=== PATIENT | female | born 1935 | race Caucasian/White ===

== ENCOUNTER 2019-11-17 08:49 | Emergency (ER) | payer MEDICARE, OTHER, SELFPAY ==
--- NOTE | 2019-11-17 08:47 | ED_ITS ---
I attest that this documentation has been prepared under the direction and in the presence of Deloris Montemayor MD. Justen Chowdhury, Scribe 11/17/19;08:48 HPI - CPR General Chief Complaint: Cardiac Arrest/CPR Stated Complaint: Cardiac arrest Time Seen by Provider: 11/17/19 08:47 Source: EMS and RN notes reviewed Mode of arrival: EMS Limitations: clinical condition History of Present Illness HPI narrative: Pt is a 84 y/o female who presents to the ED via EMS with c/o unresponsiveness. According to EMS, restaurant staff at a local diner heard a collapse around 8:10 AM this morning. They note that restaurant staff hadn't witnessed the collapse, but soon found the pt unresponsive in her lau. They eventually called EMS around 8:12 AM. EMS states that the pt hadPEA and no pulse upon their arrival. Pt's BS was 93. They note that they administered a total of 6 rounds of epinephrine while in route, and state that they have performed roughly 30 minutes of CPR prior to their arrival to the ED. No family was present when the patient collapsed. Patient was alone. No no medical history. No prior visits to this facility. HPI limited due to the pt's clinical condition. complaint: collapsed during rest Onset (ago): minute(s) (35) Time: 08:12 Timing confirmed by: other (EMS) Place: other (restaurant) Initial findings in the field: no pulse and PEA Associated symptoms: other (unobtainable) Treatments prior to arrival: chest compressions and epinephrine mgs # (5) Review of Systems Review of Systems: Narrative: Complete ROS unobtainable due to the pt's clinical condition. Exam Narrative: Exam Narrative: GENERAL: Unconscious, unresponsive HEAD: Normocephalic, atraumatic. EYES: Fixed and dilated ENT: Intubated CHEST: Tej in place over chest. Bilateral breath sounds. Intubated. HEART: No peripheral pulses. PEA. ABDOMEN: Nondistended EXTREMITIES: No spontaneous motion SKIN: Pale, mottled, cool NEURO: GCS 3 T Course Course Emergency Course: Patient presented to the emergency department in cardiac arrest. Per EMS, patient had had a witnessed collapse at a restaurant. She has no family present and there is no known past medical history. Patient had 6 rounds of epinephrine and was intubated in the field. No ROSC obtained at the time of initial pulse check. Patient had 2 additional rounds of epinephrine, bicarbonate which resulted in no return of spontaneous circulation. Time of was called at 9 AM. There was no family present, the food and beverage operations manager and social media coordinator tried numerous avenues to reach any family contact which we were unsuccessful. Patient's daughter then arrived to the ED. She was informed her mother had pas sed away. Discharge Plan Discharge Clinical Impression: Cardiac arrest Patient Disposition: Condition: Terminal Follow-up/Referrals: UNKNOWN,DOCTOR [Primary Care Provider] - I personally performed the services described in this documentation. All medical record entries made by the scribe were at my direction and in my presence. I have reviewed the chart and discharge instructions and agree that the record reflects my personal performance and is accurate and complete. Deloris Montemayor MD 11/17/19;[id number]
--- NOTE | 2019-11-17 08:59 | ECG_ITS ---
Measurements Intervals [place] Rate: 37 P: UT: 0 QRS: 103 QRSD: 156 T: -60 QT: 408 QTc: 324 Interpretive Statements SLOW JUNCTIONAL RHYTHM RIGHT AXIS DEVIATION INTRAVENTRICULAR CONDUCTION DELAY ANTEROLATERAL ST ELEVATION MYOCARDIAL INJURY- ACUTE INFERIOR ST ELEVATION MYOCARDIAL INFARCT- ACUTE BASELINE ARTIFACT- II, III, AVF, V1- V6 ABNORMAL ECG Electronically Signed On 11-17-2019 11:52:05 HOSE OPERATOR by Moisés Be D.O.
--- NOTE | 2019-11-17 10:24 | PC.NURSE ---
Equipment Washer notified of pt's .
--- NOTE | 2019-11-17 10:30 | PC.NURSE ---
[facility] transplant notified of pt's .
--- NOTE | 2019-11-17 11:30 | PC.NURSE ---
[facility].
== END 2019-11-17 12:08 | disposition expired ==
PROVIDERS: Emergency Provider Emergency Medicine
DX: I21.09 ST elevation (STEMI) myocardial infarction involving other coronary artery of anterior wall (principal); I46.9 Cardiac arrest, cause unspecified; I45.9 Conduction disorder, unspecified
CPT/HCPCS: 92950; 93005; 99285; J0171; J7030